=== PATIENT | male | born 2000 | race Caucasian/White ===

== ENCOUNTER 2021-01-02 13:29 | Emergency (ER) | payer MEDICAID ==
[~2021-01-02] VITALS: Ht 162.6 cm; Wt 63.6 kg
[2021-01-02] MEDS ORDERED: ALBU8HFA IH (13:33)
[2021-01-02] MEDS ORDERED: HydrOXYzine HCL 25 MG TABLET PO ONE (14:00)
[2021-01-02 14:24] VITALS: BP 141/68
== END 2021-01-02 14:56 | disposition home or self-care (01) ==
LOC: EMS 13:36
DX: F41.9 Anxiety disorder, unspecified (principal); R07.89 Other chest pain; R00.2 Palpitations; F12.90 Cannabis use, unspecified, uncomplicated; J45.909 Unspecified asthma, uncomplicated; F17.210 Nicotine dependence, cigarettes, uncomplicated
CPT/HCPCS: 99283